=== PATIENT | female | born 1935 | race Caucasian/White ===

== ENCOUNTER 2016-11-12 12:30 | Inpatient (IN) | payer OTHER, MEDICARE ==
[2016-11-12 12:37] VITALS: BMI 21.9
[2016-11-12] MEDS ORDERED: SODIUM CHLORIDE 1,000 ML IV STA (15:06)
--- NOTE | 2016-11-12 15:06 | PDOC ---
History of Present Illness - General Chief Complaint: Sore Throat Stated Complaint: PCP SENT, THROAT PAIN Time Seen by Provider: 11/12/16 13:48 History Source: Patient Exam Limitations: No Limitations - History of Present Illness Initial Comments: 11/12/16 15:01 81-year-old female complaining of difficulty swallowing since Wednesday after eating dinner. Patient states unable to take her medication and has been having to spit into a cup secondary to secretions. Patient states had an endoscopy done by Dr. Kennedy in February but was sent here by her PCP for admission and also to be seen by Dr. Stone for food impaction. Patient denies neck pain, dizziness, chest pain, shortness of breath, fever or chills. Patient denies sore throat, change in voice, or dizziness. Timing/Duration: other Severity: moderate Associated Symptoms: reports: other Past History - Past Medical History Allergies/Adverse Reactions: Allergies Allergy/AdvReac Type Severity Reaction Status Date / Time aspirin Allergy Mild Hives Verified 11/12/16 12:36 Penicillins Allergy Verified 11/12/16 12:36 Home Medications: Ambulatory Orders Atorvastatin Ca [Lipitor] 10 mg PO HS 11/26/14 Ascorbate Calcium [Vitamin C] 500 mg PO DAILY 01/06/16 Cilostazol 100 mg PO BID 01/06/16 Ferrous Gluconate [Iron] 256 mg PO DAILY 01/06/16 Anemia: Yes Asthma: No Cancer: No Cardiac Disorders: Yes (CAROTID ARTERY STENOSIS) CVA: No COPD: No CHF: No Dementia: No Diabetes: No GI Disorders: Yes (CECAL AVM) Disorders: No HTN: No Hypercholesterolemia: No Liver Disease: No Suicide Attempt (Hx): No Seizures: No Thyroid Disease: No - Surgical History Abdominal Surgery: No Appendectomy: No Cardiac Surgery: Yes (CELIAC AXIS STENT, IVC FILTER) Cholecystectomy: No Lung Surgery: No Neurologic Surgery: No Orthopedic Surgery: Yes (ELBOW FRACTURE) - Psycho/Social/Smoking Cessation Hx Suicidal Ideation: No Smoking History: Never smoked Have you smoked in the past 12 months: No If you are a former smoker, when did you quit?: 1998 Information on smoking cessation initiated: No Hx Alcohol Use: No Drug/Substance Use Hx: No Substance Use Type: None Hx Substance Use Treatment: No Patient Lives Alone: No Lives with/in: brother Review of Systems - Review of Systems Able to Perform ROS?: Yes Constitutional: No: Symptoms Reported HEENTM: Yes: Difficulty Swallowing Respiratory: No: Symptoms reported Cardiac (ROS): No: Symptoms Reported ABD/GI: No: Symptoms Reported : No: Symptoms Reported Musculoskeletal: No: Symptoms Reported Integumentary: No: Symptoms Reported Endocrine: No: Symptoms Reported Hematologic/Lymphatic: Yes: See HPI *Physical Exam - Vital Signs Last Vital Signs Temp Pulse Resp BP Pulse Ox 98.3 F 106 H 18 132/82 97 11/12/16 12:33 11/12/16 12:33 11/12/16 12:33 11/12/16 12:33 11/12/16 12:33 - Physical Exam General Appearance: Yes: Nourished, Appropriately Dressed. No: Apparent Distress HEENT: positive: EOMI, SONG, Normal Voice, Pharynx Normal (uvula midline). negative: Tonsillar Erythema, Excessive drooling Neck: positive: Normal Thyroid, Supple. negative: Lymphadenopathy (R), Lymphadenopathy (L) Respiratory/Chest: positive: Lungs Clear, Normal Breath Sounds. negative: Respiratory Distress, Accessory Muscle Use, Stridor Cardiovascular: positive: Regular Rhythm, Tachycardia. negative: Murmur Gastrointestinal/Abdominal: positive: Soft. negative: Tenderness Integumentary: positive: Normal Color, Warm, Moist Neurologic: positive: Motor Strength 5/5 (ambulatory) ED Treatment Course - LABORATORY CBC & Chemistry Diagram: 11/12/16 15:20 11/12/16 15:20 - RADIOLOGY Radiology Studies Ordered: Category Date Time Status CHEST X-RAY PORTABLE* [RAD] Stat Radiology 11/12/16 14:50 Ordered Medical Decision Making - Medical Decision Making 11/12/16 15:07 Pt here for likely food impaction after eating a pork loin on Wednesday. Patient states has been unable to drink fluids take her medications and tolerate solids since Wednesday. Patient to be admitted under Dr. Bianchi and to be consultation by GI Dr. Eduardo Stone call placed to both admission orders and IV fluids ordered. 11/12/16 16:[address] Anh Stone and will consult. 11/12/16 16:53 Dr. Stone here for consultation. Pt comfortable and awaiting imaging. *DC/Admit/Observation/Transfer Diagnosis at time of Disposition: Obstruction of esophagus due to food impaction, Hypoglycemia, Elevated BUN Dysphagia Qualifiers: Dysphagia type: unspecified Qualified Code(s): R13.10 - Dysphagia, unspecified - Discharge Dispostion Admit: Yes - Referrals
[2016-11-12 15:36] LABS: BASOPHIL 0.9 % (0-2.0); EOSINOPHIL 0.6 % (0-4.5); MCH 28.4 pg (25.7-33.7); MCHC 31.2 g/dl (32.0-36.0); MEAN CELL VOLUME 90.8 fl (80-96); MEAN PLT VOLUME 8.4 fl (7.5-11.1); PLATELET COUNT 380 K/MM3 (134-434); RDW 16.6 % (11.6-15.6); WHITE BLOOD COUNT 10.3 K/mm3 (4.0-10.0)
[2016-11-12 15:57] LABS: ALBUMIN 3.8 g/dl (3.4-5.0); ANION GAP 14 (8-16); BILIRUBIN,TOTAL 0.6 mg/dL (0.2-1.0); CALCIUM 8.9 mg/dL (8.5-10.1); CO2 18 mmol/L (21-32); CREATININE 0.8 mg/dL (0.55-1.02); GLUCOSE,RANDOM 57 mg/dL (74-106); MAGNESIUM 2.6 mg/dL (1.8-2.4); SGPT/ALT 17 U/L (12-78); TOT PROT 8.2 g/dl (6.4-8.2)
[2016-11-12 15:58] LABS: ALK PHOS 76 U/L (45-117)
[2016-11-12 16:00] LABS: SGOT/AST 41 U/L (15-37)
[2016-11-12] MEDS ORDERED: DEXTROSE 5%-0.45% SALINE 1,000 ML IV SCH (16:15)
--- NOTE | 2016-11-12 16:40 | PN ---
Progress Note (short form) - Note Progress Note: Consult dictated Came to see Patient as Dr. Kennedy advised me she may be coming to the ER today with suspected food impaction. Call placed by the ER scribe to alert me of her arrival and to discuss the case with ER BOOKY Elliot was actually to Dr. Jerardo Tovar's office, not to mine. Difficulty swallowing after eating pork loin Wednesday Last tried to eat yogurt this past wednesday but it caused pain has been spitting up saliva Says that this has happened on 2-3 other occasions the last being 2-3 years ago , requiring upper endoscopy to "get the food out" Imp: Suspected proximal esophageal food impaction Plan: CT scan neck and chest IV hydration Upper endoscopy pending the above. Discussed potential risks of the procedure like but not limited to bleeding, perforation requiring surgery to repair, infection,sedation medication effects all of which could be potentially life threatening. She has agreed to the procedure
--- NOTE | 2016-11-12 17:26 | PN ---
Progress Note (short form) - Note Progress Note: patient explained to me that after positioning her chin to her chest for CT scan , she felt food go down and states feeling much better now. Advised her nurse Mimi to give Ms. Tamez a trial of clear liquids, npo after midnight with elective EGD in AM. Given recurrence of food impactions ? dysmitility, ? EE.
[2016-11-12] MEDS ORDERED: DEXTROSE 5%-NORMAL SALINE 1,000 ML IV SCH (18:15)
--- NOTE | 2016-11-12 18:23 | CONS ---
DATE OF CONSULTATION: DATE OF DICTATION: 11/12/2016 GASTROINTESTINAL CONSULTATION REQUESTING PHYSICIAN: Patrizia Bianchi M.D. HISTORY OF PRESENT ILLNESS: Patient is an 81-year-old female admitted through [facility] emergency room for evaluation of difficulty swallowing. She states she was in her usual state of health until Wednesday when after eating pork loin, she began experiencing pain in her throat and difficulty swallowing. She tried drinking water; this caused pain. She had to spit the water out, and she states that the last time she tried eating something was this patient Wednesday, which was yogurt, which led to pain in her throat. She has been spitting up her saliva as well. She describes similar about 2 or 3 of these episodes in the past, and the last occurring about 2 or 3 years ago, and alludes to having had an upper endoscopy performed to "remove food". She is known to my colleague, Dr. Aaron Kennedy, who was seeing her in spring for evaluation of anemia. This culminated in both upper endoscopy and colonoscopy. She had upper endoscopy on January 07, 2016, revealing 5-cm hiatal hernia, a tiny 1-2 mm benign-appearing ulcer within the hernia, and he did note that the junction between the esophageal and gastric mucosa appeared sharp. He noted a friable duodenal bulb. 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 She states she has also been unable to properly take her standing medications. PAST MEDICAL HISTORY: Includes anemia, bilateral pulmonary emboli, celiac axis stent placement. PAST SURGICAL HISTORY: Includes elbow fracture repaired in 1998, IVC filter placement, and celiac axis stent to the superior mesenteric artery with lower GI bleeding 9 days afterwards, when she was on Plavix at the time. Plavix was discontinued. SOCIAL HISTORY: She was born in the [place], , former smoker. She drinks a glass of wine daily. No history of intravenous drug abuse or illicit drugs. FAMILY HISTORY: Father had a history of CHF, mother had a CVA, sibling had a CVA and child in good health. MEDICATIONS PRIOR TO ADMISSION: Include Lipitor, Pletal, and Protonix. ALLERGIES: PENICILLIN and ASPIRIN, which caused hives. REVIEW OF SYSTEMS: She denies any chest pain or shortness of breath. She denied any fevers or chills, any nausea or vomiting. She did complain of difficulty swallowing. She denied any rectal bleeding and hematemesis. She does describe pain upon swallowing as well. PHYSICAL EXAMINATION: General: The patient is found lying comfortably in her emergency room stretcher. She did have a kidney basin with some sputum from spitting up her saliva. Vital signs: She is afebrile with a temperature of 97.9, pulse 100, blood pressure 131/64, and she was saturating at 94% on room air. HEENT: Sclerae are anicteric. Neck: Supple. Cardiovascular: Tachycardic rate with a regular rhythm. No murmurs are appreciated. Lungs: Clear to auscultation bilaterally. Abdomen: Nondistended. Normoactive bowel sounds. No hepatosplenomegaly was appreciated. No mass was palpated. No hernia detected. No tenderness was elicited. Extremities: No lower extremity edema. LABORATORY EVALUATION: White blood count 7.3, hemoglobin 13.4, hematocrit 42.9, platelets 380. INR 1.00, sodium 143, potassium 4.7, chloride 111, bicarbonate 18, BUN 25, creatinine 0.8, glucose 57, AST 41, ALT 17, alkaline phosphatase 76. IMPRESSION: An 81-year-old female with suspected proximal esophageal food impaction. PLAN: CT scan of the neck and chest. IV hydration. I did discuss upper endoscopy with Ms. Tamez pending the above. We discussed potential risks of the procedure like, but not limited to, bleeding, perforation requiring surgery to repair, infection, sedation/medication effects, all of which can be potentially life-threatening. She has agreed to the procedure. Other recommendations will be made pending the above. I thank you for this consultative opportunity. JALYN ANTHONY DO [id number]
--- NOTE | 2016-11-12 18:48 | HP ---
Admitting History and Physical - Primary Care Physician PCP: Patrizia Bianchi - Admission Chief Complaint: unable to swallow History of Present Illness: 81-year-old female complaining of difficulty swallowing since Wednesday after eating dinner. Patient states unable to take her medication and has been having to spit into a cup secondary to secretions. Patient states had an endoscopy done by Dr. Kennedy and February but was sent here by her PCP for admission and to be seen by Dr. Tovar. Patient denies neck pain, dizziness, chest pain, shortness of breath, fever or chills. Patient denies sore throat, change in voice, or dizziness. History Source: Patient Limitations to Obtaining History: No Limitations - Smoking History Smoking history: Never smoked Have you smoked in the past 12 months: No If you are a former smoker, when did you quit?: 1998 - Alcohol/Substance Use Hx Alcohol Use: No History of Substance Use: reports: None - Social History Usual Living Arrangement: Yes: Alone ADL: Independent History of Recent Travel: No Home Medications - Allergies Allergies/Adverse Reactions: Allergies Allergy/AdvReac Type Severity Reaction Status Date / Time aspirin Allergy Mild Hives Verified 11/12/16 12:36 Penicillins Allergy Verified 11/12/16 12:36 - Home Medications Home Medications: Ambulatory Orders Atorvastatin Ca [Lipitor] 10 mg PO HS 11/26/14 Ascorbate Calcium [Vitamin C] 500 mg PO DAILY 01/06/16 Cilostazol 100 mg PO BID 01/06/16 Ferrous Gluconate [Iron] 256 mg PO DAILY 01/06/16 Family Disease History - Family Disease History Family History: Unremarkable Review of Systems - Review of Systems Constitutional: denies: Chills, Fever Eyes: denies: Blurred Vision, Double Vision HENT: reports: Difficult Swallowing. denies: Mouth Swelling Neck: denies: Stiffness, Tenderness Cardiovascular: denies: Chest Pain, Shortness of Breath Respiratory: denies: Cough, SOB Gastrointestinal: reports: Dysphagia. denies: Abdominal Pain, Bloating, Constipation, Diarrhea, Vomiting Genitourinary: denies: Dysuria, Flank Pain Musculoskeletal: denies: Back Pain, Joint Pain Neurological: denies: Change in LOC, Change in Speech, Confusion, Dizziness Endocrine: denies: Excessive Sweating, Unexplained Weight Gain, Unexplained Weight Loss Hematology/Lymphatic: denies: Easily Bruised, Excessive Bleeding Psychiatric: denies: Anxiety, Depression Physical Examination Vital Signs: Vital Signs Temperature 97.9 F 11/12/16 16:45 Pulse Rate 95 H 11/12/16 16:45 Respiratory Rate 16 11/12/16 16:45 Blood Pressure 131/64 11/12/16 16:45 O2 Sat by Pulse Oximetry (%) 95 11/12/16 16:45 Constitutional: Yes: No Distress, Calm Eyes: Yes: Conjunctiva Clear HENT: Yes: Atraumatic Neck: Yes: Supple Cardiovascular: Yes: Regular Rate and Rhythm Respiratory: Yes: CTA Bilaterally Gastrointestinal: Yes: Soft. No: Distention, Tenderness Renal/: No: CVA Tenderness - Left, CVA Tenderness - Right Musculoskeletal: No: Joint Stiffness, Joint Swelling Extremities: No: Calf Tenderness, Cold, Cool, Cyanosis Edema: No Peripheral Pulses WNL: Yes Integumentary: No: Pressure Ulcer, Rash, Venous Stasis Changes Neurological: Yes: WNL, Alert, Oriented ...Motor Strength: WNL Psychiatric: Yes: WNL, Alert, Oriented. No: Agitated, Suicidal Ideation Imaging - Results Chest X-ray: Report Reviewed Cat Scan: Report Reviewed Assessment/Plan 81-year-old female complaining of difficulty swallowing since Wednesday after eating dinner. Patient states unable to take her medication and has been having to spit into a cup secondary to secretions. GI eval r/o food impaction IVF for dehydration and hypoGlycemia d/w pt and staff; d/w ER dr and pt's PCP dr Koko Davalos
[2016-11-12] MEDS ORDERED: HEPARIN NA (PORCINE) 5,000 UNITS/ML 1ML VIAL SQ SCH (22:00)
[2016-11-12] MEDS ORDERED: ATORVASTATIN CA 10 MG TABLET (FP) PO SCH (22:00)
[2016-11-13 06:47] LABS: BASOPHIL 1.2 % (0-2.0); EOSINOPHIL 4.3 % (0-4.5); MCH 28.5 pg (25.7-33.7); MEAN PLT VOLUME 8.4 fl (7.5-11.1); NEUTROPHILS 60.7 % (42.8-82.8); PLATELET COUNT 329 K/MM3 (134-434); RDW 16.2 % (11.6-15.6); WHITE BLOOD COUNT 6.2 K/mm3 (4.0-10.0)
[2016-11-13 07:04] LABS: CALCIUM 7.9 mg/dL (8.5-10.1); CREATININE 0.7 mg/dL (0.55-1.02)
[2016-11-13] MEDS: CILOSTAZOL 100 MG TABLET PO SCH ×2 (07:34→10:11)
[2016-11-13] MEDS ORDERED: PROPOFOL 20 ML ONE ×2 (10:06)
--- NOTE | 2016-11-13 11:23 | EKG ---
Test Reason : Blood Pressure : / mmHG Vent. Rate : 094 BPM Atrial Rate : 094 BPM P-R Int : 150 ms QRS Dur : 090 ms QT Int : 386 ms P-R-T Axes : 061 -16 082 degrees QTc Int : 482 ms NORMAL SINUS RHYTHM POSSIBLE LEFT ATRIAL ENLARGEMENT LEFT VENTRICULAR HYPERTROPHY WITH REPOLARIZATION ABNORMALITY ABNORMAL ECG WHEN COMPARED WITH ECG OF 26-NOV-2014 12:51, NONSPECIFIC T WAVE ABNORMALITY NOW EVIDENT IN LATERAL LEADS Confirmed by JOSY DELGADO MD ([id number]) on 11/13/2016 11:22:48 AM Referred By: Confirmed By:JOSY DELGADO MD
--- NOTE | 2016-11-13 12:13 | DS ---
Physical Examination Vital Signs: Vital Signs Temperature 97.7 F 11/13/16 11:22 Pulse Rate 90 11/13/16 11:57 Respiratory Rate 20 11/13/16 11:57 Blood Pressure 125/63 11/13/16 11:57 O2 Sat by Pulse Oximetry (%) 95 11/13/16 11:57 Findings/Remarks: seen in endo s/p EGD d/w pt and dr Knight the findings; no dysphagia ate OK needs PPI home; ordered from pharmacy; d/w pt needs f/u with PCP in 1-2 weeks and with GI as advised in 2-3 months avoid Nsaids to be picked up from [facility] by family, advised do not drive today also advised see cardio outpt for ashd screening; EKG nonspec T waves changes pt asymptomatic no CP/SOB/DOAN d/w pt all the above, she is axox3 and undertsood all d/w PCP dr Davalos scripts done, d/w staff Constitutional: Yes: No Distress Eyes: Yes: Conjunctiva Clear HENT: Yes: Atraumatic Neck: Yes: Supple Cardiovascular: Yes: Regular Rate and Rhythm Respiratory: Yes: CTA Bilaterally Gastrointestinal: Yes: Soft. No: Distention, Tenderness Renal/: No: CVA Tenderness - Left, CVA Tenderness - Right Musculoskeletal: No: Joint Stiffness, Joint Swelling Extremities: No: Cold, Cool Edema: No Peripheral Pulses WNL: Yes Integumentary: No: Pressure Ulcer, Venous Stasis Changes Neurological: Yes: WNL, Alert, Oriented ...Motor Strength: WNL Psychiatric: Yes: WNL, Alert, Oriented. No: Agitated Labs: CBC, BMP 11/13/16 06:15 11/13/16 06:15 Discharge Summary Reason For Visit: DYSPAGIA; OBSTRUCTION ESOPHAGUS DUE TO FOOD IMPACT Current Active Problems Dysphagia (Acute) Elevated BUN (Acute) Hypoglycemia (Acute) Obstruction of esophagus due to food impaction (Acute) Procedures: Principal: food impaction Other Procedures: EGD GI dr Knight; Hospital Course: improved; see DC instructions - Instructions Diet, Activity, Other Instructions: CHEW FOOD WELL FLUIDS WITH FOOD PANTOPRAZOLE 40MG DAILY AVOID NSAIDS f/u PCP dr Davalos in 1-2 weeks; GI f/u dr Knight as advised; outpt cardiology eval for ASHD screening d/w pt Referrals: Caren Davalos MD [Primary Care Provider] - Juan Alberto Knight MD [Staff Physician] - Disposition: HOME - Home Medications Comprehensive Discharge Medication List: Ambulatory Orders Atorvastatin Ca [Lipitor] 10 mg PO HS 11/26/14 Ascorbate Calcium [Vitamin C] 500 mg PO DAILY 01/06/16 Cilostazol 100 mg PO BID 01/06/16 Ferrous Gluconate [Iron] 256 mg PO DAILY 01/06/16 Pantoprazole Sodium [Protonix] 40 mg PO DAILY #30 tablet. 11/13/16
[2016-11-13 12:47] VITALS: BP 139/82; PULSE 8
[2016-11-13 13:00] VITALS: TEMP 97.5
--- NOTE | 2016-11-16 11:19 | PATH ---
Surgical Pathology Report Patient Name: RENNY ALMANZA [facility]. Rec. #: [id number] /Age/Gender: 1935 (Age: 81) / F Account: [id number] Location: EMERGENCY ROOM Taken: 11/13/2016 Received: 11/13/2016 Reported: 11/16/2016 Physicians: Juan Alberto Knight M.D. Specimen(s) Received A: BX STOMACH B: BX GASTRIC POLYP C: BX MID ESOPHAGUS Clinical History Food impaction Hiatal hernia, atrophic gastritis, duodenal ulcer, gastric polyp Final Diagnosis A. STOMACH, BIOPSY: GASTRIC MUCOSA WITH NO PATHOLOGIC CHANGES. IMMUNOSTAIN FOR H. PYLORI IS NEGATIVE. B. STOMACH, POLYP, BIOPSY: GASTRIC FUNDIC MUCOSA WITH MILD HYPERPLASTIC CHANGES. NO ADENOMATOUS CHANGE IS IDENTIFIED. IMMUNOSTAIN FOR H. PYLORI IS NEGATIVE. C. MID ESOPHAGUS BIOPSY: SQUAMOUS EPITHELIUM WITH PAPILLOMATOSIS AND CHRONIC INFLAMMATION SUGGESTIVE OF REFLUX ESOPHAGITIS. NO EOSINOPHILIC ESOPHAGITIS IDENTIFIED. Electronically Signed Abdirahman Sotelo M.D. Gross Description A. Received in formalin, labeled "biopsy stomach" are 3 urena, irregular portions of soft tissue ranging from 0.5-0.8 cm. in greatest dimension. The specimens are submitted in toto in one cassette. B. Received in formalin, labeled "biopsy gastric polyp" are 2 urena, irregular portions of soft tissue measuring 0.2 and 0.4 cm. in greatest dimension. The specimens are submitted in toto in one cassette. C. Received in formalin, labeled "biopsy midesophagus" is a urena, irregular portion of soft tissue measuring 0.3 cm. in greatest dimension. The specimen is submitted in toto in one cassette. 11/13/201611/13/2016
== END 2016-11-13 14:00 | disposition home or self-care (01) | DRG 395 ==
LOC: JERFT 12:30 → JER 12:30 → JERBED 16:20
PROVIDERS: ADMIT Internal Medicine; ATTEND Internal Medicine
PROC: 0DB58ZX Excision of Esophagus, Via Natural or Artificial Opening Endoscopic, Diagnostic (ICD-10-PCS; 2016-11-13)
PROC: 0DBG8ZZ Excision of Left Large Intestine, Via Natural or Artificial Opening Endoscopic (ICD-10-PCS; 2016-11-13)
PROC: 0DB68ZX Excision of Stomach, Via Natural or Artificial Opening Endoscopic, Diagnostic (ICD-10-PCS; principal; 2016-11-13 10:45)
DX: T18.128A Food in esophagus causing other injury, initial encounter (principal); D64.9 Anemia, unspecified; I65.29 Occlusion and stenosis of unspecified carotid artery; K44.9 Diaphragmatic hernia without obstruction or gangrene; K63.5 Polyp of colon; K26.9 Duodenal ulcer, unspecified as acute or chronic, without hemorrhage or perforation; K29.40 Chronic atrophic gastritis without bleeding; X58.XXXA Exposure to other specified factors, initial encounter; Y93.89 Activity, other specified; Y92.89 Other specified places as the place of occurrence of the external cause; Y99.8 Other external cause status
CPT/HCPCS: 36415; 70490-TC; 71250-TC; 80048; 80053; 83735; 85025; 85610; 86850; 86900; 86901; 88305-TC; 93005; 93010; 99282-25

== ENCOUNTER 2017-07-23 10:02 | Inpatient (IN) | payer OTHER, MEDICARE ==
--- NOTE | 2017-07-23 10:08 | PDOC ---
History of Present Illness - General Stated Complaint: VOMITING Time Seen by Provider: 07/23/17 10:07 Past History - Past Medical History Allergies/Adverse Reactions: Allergies Allergy/AdvReac Type Severity Reaction Status Date / Time aspirin Allergy Mild Hives Verified 07/23/17 10:06 Penicillins Allergy Verified 07/23/17 10:06 Home Medications: Ambulatory Orders Atorvastatin Ca [Lipitor] 10 mg PO HS 11/26/14 Ascorbate Calcium [Vitamin C] 500 mg PO DAILY 01/06/16 Cilostazol 100 mg PO BID 01/06/16 Ferrous Gluconate [Iron] 256 mg PO DAILY 01/06/16 Pantoprazole Sodium [Protonix] 40 mg PO DAILY #30 tablet. 11/13/16 Anemia: Yes Asthma: No Cancer: No Cardiac Disorders: Yes (CAROTID ARTERY STENOSIS) CVA: No COPD: No CHF: No Dementia: No Diabetes: No GI Disorders: Yes (CECAL AVM) Disorders: No HTN: No Hypercholesterolemia: No Liver Disease: No Suicide Attempt (Hx): No Seizures: No Thyroid Disease: No - Surgical History Abdominal Surgery: No Appendectomy: No Cardiac Surgery: Yes (CELIAC AXIS STENT, IVC FILTER) Cholecystectomy: No Lung Surgery: No Neurologic Surgery: No Orthopedic Surgery: Yes (ELBOW FRACTURE) - Psycho/Social/Smoking Cessation Hx Suicidal Ideation: No Smoking History: Never smoked Have you smoked in the past 12 months: No If you are a former smoker, when did you quit?: 1998 Hx Alcohol Use: No Drug/Substance Use Hx: No Substance Use Type: None Hx Substance Use Treatment: No
[2017-07-23] MEDS ORDERED: SODIUM CHLORIDE 1,000 ML IV STA (10:22)
[2017-07-23 10:41] LABS: BASOPHIL 2.1 % (0-2.0); EOSINOPHIL 1.3 % (0-4.5); MCH 21.8 pg (25.7-33.7); MCHC 30.5 g/dl (32.0-36.0); MEAN CELL VOLUME 71.3 fl (80-96); MEAN PLT VOLUME 7.6 fl (7.5-11.1); NEUTROPHILS 62.8 % (42.8-82.8); PLATELET COUNT 464 K/MM3 (134-434); RDW 19.9 % (11.6-15.6); WHITE BLOOD COUNT 6.2 K/mm3 (4.0-10.0)
[2017-07-23 11:00] LABS: INR 1.12 (0.82-1.09); PROTHROMBIN TIME (PATIENT) 12.4 SEC (9.98-11.88)
[2017-07-23 11:02] LABS: ALBUMIN 3.5 g/dl (3.4-5.0); ANION GAP 12 (8-16); BILIRUBIN,TOTAL 0.4 mg/dL (0.2-1.0); CALCIUM 9.3 mg/dL (8.5-10.1); CO2 23 mmol/L (21-32); CREATININE 1.1 mg/dL (0.55-1.02); GLUCOSE,RANDOM 135 mg/dL (74-106); SGOT/AST 25 U/L (15-37); SGPT/ALT 14 U/L (12-78); TOT PROT 7.6 g/dl (6.4-8.2)
[2017-07-23 11:04] LABS: ALK PHOS 61 U/L (45-117); CPK 63 IU/L (26-192); TROPONIN I 0.02 ng/ml (0.00-0.05)
--- NOTE | 2017-07-23 11:47 | PDOC ---
History of Present Illness - General Chief Complaint: Revisit, Lab Variance Stated Complaint: LOW H&H,NAUSEA Time Seen by Provider: 07/23/17 10:07 History Source: Patient Exam Limitations: No Limitations - History of Present Illness Initial Comments: 07/23/17 10:14 81-year-old female presents to the ED for evaluation of drop in hematocrit associated with dizziness and nausea for the past few days. Patient states has history of PUD that required a cecal stent placed 2 years ago and has been under the care of Dr. Blackmon. Patient also states history of CAD and anemia. Patient denies bloody stool, dark colored stool, abdominal distention, vomiting up blood, or palpitations. Patient denies recent change in medications and was told by her PCP after receiving blood work that was drawn yesterday that her hemoglobin and hematocrit dropped approximately 3-4 points. Timing/Duration: getting worse Severity: moderate Associated Symptoms: reports: loss of appetite, nausea/vomiting, weakness. denies: shortness of breath Past History - Past Medical History Allergies/Adverse Reactions: Allergies Allergy/AdvReac Type Severity Reaction Status Date / Time aspirin Allergy Mild Hives Verified 07/23/17 10:06 Penicillins Allergy Verified 07/23/17 10:06 Home Medications: Ambulatory Orders Atorvastatin Ca [Lipitor] 10 mg PO HS 11/26/14 Ascorbate Calcium [Vitamin C] 500 mg PO DAILY 01/06/16 Cilostazol 100 mg PO BID 01/06/16 Ferrous Gluconate [Iron] 256 mg PO DAILY 01/06/16 Pantoprazole Sodium [Protonix] 40 mg PO DAILY #30 tablet. 11/13/16 Anemia: Yes Asthma: No Cancer: No Cardiac Disorders: Yes (CAROTID ARTERY STENOSIS) CVA: No COPD: No CHF: No Dementia: No Diabetes: No GI Disorders: Yes (CECAL AVM) Disorders: No HTN: No Hypercholesterolemia: No Liver Disease: No Suicide Attempt (Hx): No Seizures: No Thyroid Disease: No - Surgical History Abdominal Surgery: No Appendectomy: No Cardiac Surgery: Yes (CELIAC AXIS STENT, IVC FILTER) Cholecystectomy: No Lung Surgery: No Neurologic Surgery: No Orthopedic Surgery: Yes (ELBOW FRACTURE) - Psycho/Social/Smoking Cessation Hx Suicidal Ideation: No Smoking History: Former smoker Have you smoked in the past 12 months: No If you are a former smoker, when did you quit?: 1998 Information on smoking cessation initiated: No Hx Alcohol Use: No Drug/Substance Use Hx: No Substance Use Type: None Hx Substance Use Treatment: No Patient Lives Alone: No Review of Systems - Review of Systems Able to Perform ROS?: Yes Constitutional: Yes: Loss of Appetite, Weakness HEENTM: No: Symptoms Reported Respiratory: No: Symptoms reported Cardiac (ROS): Yes: Lightheadedness ABD/GI: Yes: Nausea, Poor Appetite. No: Constipated, Diarrhea, Poor Fluid Intake, Rectal Bleeding, Vomiting, Abdominal cramping : No: Symptoms Reported Musculoskeletal: No: Symptoms Reported Integumentary: No: Symptoms Reported Neurological: No: Symptoms reported Hematologic/Lymphatic: Yes: Anemia *Physical Exam - Vital Signs Last Vital Signs Temp Pulse Resp BP Pulse Ox 97.6 F 110 H 15 86/51 96 07/23/17 10:06 07/23/17 10:06 07/23/17 10:06 07/23/17 10:06 07/23/17 10:06 - Physical Exam General Appearance: Yes: Nourished, Appropriately Dressed. No: Apparent Distress HEENT: negative: Pale Conjunctivae Neck: positive: Supple Respiratory/Chest: positive: Lungs Clear, Normal Breath Sounds. negative: Respiratory Distress, Accessory Muscle Use Cardiovascular: positive: Regular Rhythm, Tachycardia. negative: Murmur Gastrointestinal/Abdominal: positive: Soft. negative: Tenderness Rectal Exam: positive: heme negative stool. negative: hemorrhoids Musculoskeletal: negative: Normal Inspection Extremity: negative: Normal Capillary Refill, Pedal Edema Integumentary: positive: Normal Color, Warm, Moist Neurologic: positive: Normal Mood/Affect, Motor Strength 5/5 (ambulatory) Heart Score/ECG Review - ECG Impressions Tachycardia: Sinus (sinus tachycardia at 101. No ST depression or elevation) ED Treatment Course - LABORATORY CBC & Chemistry Diagram: 07/23/17 10:35 07/23/17 10:35 - ADDITIONAL ORDERS Additional order review: 07/23/17 10:35 RBC 4.24 MCV 71.3 L MCHC 30.5 L RDW 19.9 H D MPV 7.6 Neutrophils % 62.8 Lymphocytes % 25.2 Monocytes % 8.6 Eosinophils % 1.3 Basophils % 2.1 H - RADIOLOGY Radiology Studies Ordered: Category Date Time Status CHEST X-RAY PORTABLE* [RAD] Stat Radiology 07/23/17 10:22 Taken Medical Decision Making - Medical Decision Making 07/23/17 11:02 Patient sent in by her PCP for drop in H&H accompanied with patient with symptoms of weakness, nausea, and poor appetite. Patient with history of PUD requiring a stent [address] Blackmon. Patient has no complaints of hematochezia, hemoptysis, or hematemesis. Patient was ordered for labs including type and screen, coags and IV fluids. Stool sent for guaiac testing. Will contact Dr. Blackmon once labs are resulted. 07/23/17 12:53 Laboratory Tests 07/23/17 07/23/17 07/23/17 10:35 10:35 10:35 WBC 6.2 Hgb 9.2 L D Hct 30.2 L D MCV 71.3 L Plt Count 464 H D Basophils % 2.1 H PT with INR 12.40 H INR 1.12 Sodium Potassium Chloride Carbon Dioxide Anion Gap BUN Creatinine Random Glucose Total Bilirubin AST ALT Troponin I Urine Protein Urine Ketones Urine Urobilinogen Stool Occult Blood Blood Type O POSITIVE 07/23/17 07/23/17 07/23/17 10:35 10:35 12:05 WBC Hgb Hct MCV Plt Count Basophils % PT with INR INR Sodium 137 Potassium 3.7 Chloride 102 Carbon Dioxide 23 Anion Gap 12 BUN 26 H D Creatinine 1.1 H D Random Glucose 135 H D Total Bilirubin 0.4 D AST 25 D ALT 14 Troponin I 0.02 Urine Protein 1+ H Urine Ketones Trace H Urine Urobilinogen Negative Stool Occult Blood Negative Blood Type Case discussed with Dr. Blackmon who states stent being C should be checked ordering a CT of the abdomen. Awaiting callback from Dr. Bianchi for admission. *DC/Admit/Observation/Transfer Diagnosis at time of Disposition: Symptomatic anemia, Weakness, Nausea, Poor appetite - Discharge Dispostion Admit: Yes - Referrals
[2017-07-23 12:27] LABS: URINE APPEARANCE SLCLOUDY; URINE BILIRUBIN NEGATIVE (NEGATIVE); URINE BLOOD NEGATIVE (NEGATIVE); URINE COLOR LTYELLOW; URINE GLUCOSE (UA) NEGATIVE (NEGATIVE); URINE KETONE TRACE (NEGATIVE); URINE NITRITE NEGATIVE (NEGATIVE); URINE UROBILINOGEN NEGATIVE mg/dL (0.2-1.0)
[2017-07-23 12:31] LABS: URINE LEUK ESTERASE 2+ (NEGATIVE); URINE PROTEIN 1+ (NEGATIVE)
[2017-07-23] MEDS ORDERED: PANTOPRAZOLE SODIUM 40 MG in SODIUM CHLORIDE 100 ML IVPB ONE (12:40)
[2017-07-23] MEDS ORDERED: PANTOPRAZOLE SODIUM 100 ML IVPB ONE (12:43)
[2017-07-23 13:00] LABS: URINE BACTERIA RARE /hpf (NONE SEEN); URINE HYALINE CAST 4 /lpf; URINE MUCUS RARE; URINE RBC 1 /hpf (0-3); URINE WBC 5 /hpf (3-5)
--- NOTE | 2017-07-23 16:16 | CON.GI ---
Consult Consult Specialty:: GI Reason for Consultation:: Anemia - History of Present Illness Chief Complaint: Weakness, LUIS History of Present Illness: History of Present Illness 81 year old female presented to the ED for a 5 day hx of nausea, dizziness, malaise, and loss of appetite. She states that these symptoms persisted throughout the week and that she has been having dry heaves without overt vomiting. She states that she had 2 episodes of non-bloody diarrhea on Wednesday and none since. Since Wednesday, she has not had a good appetite, eating only toast and other small, light foods. She saw her vascular doctor for claudication in her R leg yesterday, where they tania labs, found her H&H to be lower than normal, and told her to go to the hospital. Patient states that she stopped her iron pills after her colonoscopy in 2015. Gastroenterology is consulted for evaluation of possible GI bleed. PAST ENDOSCOPIES: EGD 11/13/16: esophageal mucosa normal, large sliding hiatal hernia, medium sized abnormal mucosa in gastric body and antrum; mucosa was atrophic. multiple sessile polyps were found in gastric body; polypectomy performed (found to be hyperplastic); small non-bleeding duodenal bulb ulcer; no abnormalities in duodenal mucosa EGD 01/07/16: in addition to the above, small 1-2mm benign ulcer within the hernia was noted Colonoscopy 02/11/2016: moderate diverticulosis, multiple angiodysplastic lesions in the R colon and cecum which were cauterized Past Medical History: HLD, pulmonary embolism, diverticulosis, R colonic angiodysplasias, hiatal hernia, PUD, PVD, rectal bleed Past Surgical History: orthopedic surgery in L elbow, IVC filter, SMA stent in 2014 Medications: atorvastatin, pantoprazole, cilostozol Allergies: aspirin, penicillins Social History: nondrinker, former smoker (quit in 1998), 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 Brother (brain aneurysm). 2 children healthy. 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 (01/21)), Hiatal Hernia (with Carlos ulcer+), Peptic Ulcer Disease, Other (Previous hx of food impactions that had spontaneously resolved) Heme/Onc: Yes: Anemia - Past Surgical History Past Surgical History: Yes: Colonoscopy, Upper Endoscopy Additional Surgical History: IVC filter, SMA stent, L elbow surgery - Alcohol/Substance Use Hx Alcohol Use: No History of Substance Use: reports: None - Smoking History Smoking history: Former smoker Have you smoked in the past 12 months: No If you are a former smoker, when did you quit?: 1998 - Social History Usual Living Arrangement: Alone ADL: Independent 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 Place of : [facility] History of Recent Travel: No Home Medications - Allergies Allergies/Adverse Reactions: Allergies Allergy/AdvReac Type Severity Reaction Status Date / Time aspirin Allergy Mild Hives Verified 07/23/17 10:06 Penicillins Allergy Verified 07/23/17 10:06 - Home Medications Home Medications: Ambulatory Orders Atorvastatin Ca [Lipitor] 10 mg PO HS 11/26/14 Ascorbate Calcium [Vitamin C] 500 mg PO DAILY 01/06/16 Cilostazol 100 mg PO BID 01/06/16 Ferrous Gluconate [Iron] 256 mg PO DAILY 01/06/16 Pantoprazole Sodium [Protonix] 40 mg PO DAILY #30 tablet. 11/13/16 Family Disease History - Family Disease History Family Disease History: Heart Disease: Father (passed in his 50s), Other: Mother (Stroke), Brother (brain aneurysm) Review of Systems - Review of Systems Constitutional: reports: Loss of Appetite, Malaise, Weakness Eyes: reports: No Symptoms HENT: reports: No Symptoms Neck: reports: No Symptoms Cardiovascular: reports: No Symptoms Respiratory: reports: No Symptoms Gastrointestinal: reports: Diarrhea, Nausea Musculoskeletal: reports: Extremity Pain (claudication), Muscle Cramps (Lower extremity) Integumentary: reports: Other (surgical scar on L elbow) Neurological: reports: No Symptoms Endocrine: reports: No Symptoms Hematology/Lymphatic: reports: No Symptoms Psychiatric: reports: No Symptoms Physical Exam-GI Vital Signs: Vital Signs Temperature 97.6 F 07/23/17 10:06 Pulse Rate 89 07/23/17 12:30 Respiratory Rate 16 07/23/17 12:30 Blood Pressure 144/71 07/23/17 12:30 O2 Sat by Pulse Oximetry (%) 100 07/23/17 12:30 CBC,CMP WBC 6.2 K/mm3 (4.0-10.0) 07/23/17 10:35 RBC 4.24 M/mm3 (3.60-5.2) 07/23/17 10:35 Hgb 9.2 GM/dL (10.7-15.3) L D 07/23/17 10:35 Hct 30.2 % (32.4-45.2) L D 07/23/17 10:35 MCV 71.3 fl (80-96) L 07/23/17 10:35 MCH 21.8 pg (25.7-33.7) L 07/23/17 10:35 MCHC 30.5 g/dl (32.0-36.0) L 07/23/17 10:35 RDW 19.9 % (11.6-15.6) H D 07/23/17 10:35 Plt Count 464 K/MM3 (134-434) H D 07/23/17 10:35 MPV 7.6 fl (7.5-11.1) 07/23/17 10:35 Neutrophils % 62.8 % (42.8-82.8) 07/23/17 10:35 Lymphocytes % 25.2 % (8-40) 07/23/17 10:35 Monocytes % 8.6 % (3.8-10.2) 07/23/17 10:35 Eosinophils % 1.3 % (0-4.5) 07/23/17 10:35 Basophils % 2.1 % (0-2.0) H 07/23/17 10:35 Sodium 137 mmol/L (136-145) 07/23/17 10:35 Potassium 3.7 mmol/L (3.5-5.1) 07/23/17 10:35 Chloride 102 mmol/L (98-107) 07/23/17 10:35 Carbon Dioxide 23 mmol/L (21-32) 07/23/17 10:35 Anion Gap 12 (8-16) 07/23/17 10:35 BUN 26 mg/dL (7-18) H D 07/23/17 10:35 Creatinine 1.1 mg/dL (0.55-1.02) H D 07/23/17 10:35 Creat Clearance w eGFR 47.67 (>60) 07/23/17 10:35 Random Glucose 135 mg/dL (74-106) H D 07/23/17 10:35 Calcium 9.3 mg/dL (8.5-10.1) 07/23/17 10:35 Total Bilirubin 0.4 mg/dL (0.2-1.0) D 07/23/17 10:35 AST 25 U/L (15-37) D 07/23/17 10:35 ALT 14 U/L (12-78) 07/23/17 10:35 Alkaline Phosphatase 61 U/L (45-117) 07/23/17 10:35 Creatine Kinase 63 IU/L (26-192) 07/23/17 10:35 Troponin I 0.02 ng/ml (0.00-0.05) 07/23/17 10:35 Total Protein 7.6 g/dl (6.4-8.2) 07/23/17 10:35 Albumin 3.5 g/dl (3.4-5.0) 07/23/17 10:35 Current Medications Atorvastatin Calcium (Lipitor -) 10 mg PO HS ELIER Cilostazol (Pletal -) 100 mg PO BID ELIER Pantoprazole Sodium (Protonix -) 40 mg PO DAILY ELIER Constitutional: Yes: No Distress, Calm Eyes: Yes: Conjunctiva Clear, EOM Intact, Other (anicteric) HENT: Yes: Atraumatic, Normocephalic Neck: Yes: Supple, Trachea Midline, Other (R femoral bruit and L carotid bruit noted on exam) Cardiovascular: Yes: Regular Rate and Rhythm, Bruit, S1, S2 Respiratory: Yes: Regular, CTA Bilaterally Gastrointestinal Inspection: Yes: WNL ...Auscultate: Yes: Normoactive Bowel Sounds ...Palpate: Yes: Soft ...Rectal Exam: Yes: WNL, Guaiac Negative, Hemorrhoids/External, Sphincter Tone Normal Genitourinary: Yes: WNL Musculoskeletal: Yes: WNL Extremities: Yes: WNL Edema: No Peripheral Pulses WNL: Yes Integumentary: Yes: WNL Neurological: Yes: WNL, Alert, Oriented ...Motor Strength: WNL Psychiatric: Yes: Alert, Oriented Labs: INR, PTT INR 1.12 (0.82-1.09) 07/23/17 10:35 Problem List - Problems (1) Symptomatic anemia Code(s): D64.9 - ANEMIA, UNSPECIFIED (2) Poor appetite Code(s): R63.0 - ANOREXIA (3) Nausea Code(s): R11.0 - NAUSEA (4) Angiodysplasia of colon Code(s): K55.20 - ANGIODYSPLASIA OF COLON WITHOUT HEMORRHAGE (5) Peptic ulcer within a sliding hiatal hernia Code(s): K27.9 - PEPTIC ULC, SITE UNSP, UNSP AC OR CHR, W/O HEMOR OR PERF K44.9 - DIAPHRAGMATIC HERNIA WITHOUT OBSTRUCTION OR GANGRENE (6) Diverticulosis Code(s): K57.90 - DVRTCLOS OF INTEST, PART UNSP, W/O PERF OR ABSCESS W/O BLEED Assessment/Plan 81 yo F pmh HLD, PE, diverticulosis, R colonic angiodysplasias, hiatal hernia, PUD, PVD, rectal bleed presenting for 5 day hx of weakness, nausea leading to the discovery of hemoglobin drop from last testing. No obvious etiology for anemia. Although stool guiac negative, cannot exclude indolent, intermittent GI bleeding due to her already known vascular ectasias. Colonic findings suggest she may also have them in the small intestine. Given her history of Carlos ulcer and duodenal erosions, an EGD has been proposed to exclude recurrence. Gastroscopy has been discussed in detail with the patient, including informing her of the potential complications as perforation and hemorrhage among others. She has granted an informed consent. Procedure has been scheduled for 07/26. Will reserve repeating colonoscopy for signs of overt bleeding. -continue pantoprazole -sodium-controlled diet -order iron studies (TIBC, Ferritin) -order LDH and reticulocyte count -monitor Hgb, transfuse if < 7
[2017-07-23 16:19] VITALS: BMI 22.7
[2017-07-23] MEDS ORDERED: FLU VACCINE QUAD 60 MCG/0.5 ML (MDV 17-18) IM ONE (16:19)
[2017-07-23] MEDS ORDERED: PT OWN MED DRAWER 7, Y5N ONE (16:51)
--- NOTE | 2017-07-23 17:14 | PN ---
Teaching Attending Note Name of Resident: Jerardo Conde ATTENDING PHYSICIAN STATEMENT I saw and evaluated the patient. I reviewed the resident's note and discussed the case with the resident. I agree with the resident's findings and plan as documented. SUBJECTIVE: I was contacted by Dr. Caren Davalos today who referred Karin to the ER. Karin has been feeling weak for the past week. Has increasing RLE claudication. Had CBC drawn by her vascular surgeon yesterday and was found to have a significant drop as compared to previous CBC. Denies any overt bleeding. Denies taking NSAIDs, Has h/o bleeding from colonic angiodysplasias. Has h/o Carlos ulcer ( hiatal hernia) and duodenitis OBJECTIVE: Alert Neck: bruits bilaterally Abd: softly distended, BS normoactive, nontender, no masses Rectal: no masses, brown guaiac negative stool ASSESSMENT AND PLAN: Despite lack of blood in stool I have proposed EGD to exclude an intermittently bleeding recurrent ulcer or gastroduodenitis. She has signed an informed consent. Will do EGD on 07/26. Please see the GI consultation done together with Dr Conde.
--- NOTE | 2017-07-23 21:23 | HP ---
Admitting History and Physical - Primary Care Physician PCP: Patrizia Bianchi S - Admission Chief Complaint: dizziness, anemia, h/o PUD and mesenteric ischemia History of Present Illness: 81 year old female presented to the ED for a 5 day hx of nausea, dizziness, malaise, and loss of appetite. She states that these symptoms persisted throughout the week and that she has been having dry heaves without overt vomiting. She states that she had 2 episodes of non-bloody diarrhea on Wednesday and none since. Since Wednesday, she has not had a good appetite, eating only toast and other small, light foods. She saw her vascular doctor for claudication in her R leg yesterday, where they tania labs, found her H&H to be lower than normal, and told her to go to the hospital. Patient states that she stopped her iron pills after her colonoscopy in 2015. Gastroenterology is consulted for evaluation of possible GI bleed. pt's PCP dr Koko Davalos, d/w her PMH vasculopathy (carotids, SMA stent 2014, PVD), also PUD, IVC filter; ex- smoker stopped 20 years ago pt said she took a blood thinner after stent (possibly plavix, ALL to ASA) but then had GI bleed and stopped it; said she never saw a county or city auditor but had a stress test years ago told [place] has legs pains with walking few blocks History Source: Patient, Medical Record Limitations to Obtaining History: No Limitations - Past Medical History Cardiovascular: Yes: Other (Peripheral vascular disease- requiring SMA stent, carotid artery stenosis, scheduled for RLE angiogram) Pulmonary: Yes: Pulmonary Embolus Gastrointestinal: Yes: Diverticulosis, GI Bleed (vascular ectasia bleed leading to cauterization (01/21)), Hiatal Hernia (with Carlos ulcer+), Peptic Ulcer Disease, Other (Previous hx of food impactions that had spontaneously resolved) ...: No Heme/Onc: Yes: Anemia - Past Surgical History Past Surgical History: Yes: Colonoscopy, Upper Endoscopy - Smoking History Smoking history: Former smoker Have you smoked in the past 12 months: No If you are a former smoker, when did you quit?: 1998 - Alcohol/Substance Use Hx Alcohol Use: No History of Substance Use: reports: None - Social History Usual Living Arrangement: Yes: Alone ADL: Independent 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 11/13/16 Family Disease History - Family Disease History Family Disease History: Heart Disease: Father (passed in his 50s), Other: Mother (Stroke), Brother (brain aneurysm) Review of Systems - Review of Systems Constitutional: reports: Loss of Appetite. denies: Chills, Fever, Lethargy Eyes: denies: Blurred Vision, Double Vision HENT: denies: Epistaxis Neck: denies: Stiffness, Tenderness Cardiovascular: denies: Chest Pain, Shortness of Breath Respiratory: denies: Cough, SOB, SOB on Exertion Genitourinary: denies: Dysuria, Flank Pain Musculoskeletal: reports: Muscle Cramps (legs with walking). denies: Back Pain , Muscle Pain Integumentary: denies: Bruising, Erythema Neurological: reports: Dizziness. denies: Change in LOC, Confusion, Headache, Seizure, Syncope, Unsteady Gait, Weakness Hematology/Lymphatic: denies: Easily Bruised, Excessive Bleeding Psychiatric: denies: Altered Sleep Pattern, Anxiety, Depression, Suicidal Physical Examination Vital Signs: Vital Signs Temperature 98.1 F 07/23/17 19:26 Pulse Rate 97 H 07/23/17 19:26 Respiratory Rate 20 07/23/17 19:26 Blood Pressure 151/79 07/23/17 19:26 O2 Sat by Pulse Oximetry (%) 97 07/23/17 15:00 Constitutional: Yes: No Distress, Calm Eyes: Yes: Conjunctiva Clear HENT: Yes: Atraumatic Neck: Yes: Supple Cardiovascular: Yes: Regular Rate and Rhythm Respiratory: Yes: CTA Bilaterally Gastrointestinal: Yes: Soft. No: Distention, Tenderness Renal/: No: CVA Tenderness - Left, CVA Tenderness - Right Musculoskeletal: No: Joint Stiffness, Joint Swelling Extremities: No: Cold, Cool, Cyanosis Edema: No Integumentary: No: Rash, Venous Stasis Changes Neurological: Yes: WNL, Alert, Oriented ...Motor Strength: WNL Psychiatric: Yes: WNL, Alert, Oriented. No: Agitated, Suicidal Ideation Imaging - Results Chest X-ray: Report Reviewed Other: Report Reviewed Assessment/Plan 81 year old female presented to the ED for a 5 day hx of nausea, dizziness, malaise, and loss of appetite. Found to be anemic; h/o PUD but guaiac negative in ER h/o vascuopathy extob, IVF filter Gastroenterology is consulted for evaluation of possible GI bleed. will also ask cardiology and vascular sx to eval pt sq heparin for DVT/PE PFX if no objections from GI TEDs SCDs also ordered f/u labs; d/w pt and staff; d/w PCP
[2017-07-23] MEDS: PANTOPRAZOLE SODIUM 40 MG in SODIUM CHLORIDE 100 ML IVPB SCH (21:27)
[2017-07-23] MEDS: CILOSTAZOL 100 MG TABLET PO SCH (21:28)
[2017-07-23] MEDS: ATORVASTATIN CA 10 MG TABLET (FP) PO SCH (21:28)
--- NOTE | 2017-07-24 06:42 | PN ---
Progress Note, Physician Chief Complaint: in bed nad afebrile VSS no new c.o - Current Medication List Current Medications: Active Medications Atorvastatin Calcium (Lipitor -) 10 mg PO HS [facility] Last Admin: 07/23/17 21:28 Dose: 10 mg Cilostazol (Pletal -) 100 mg PO BID [facility] Last Admin: 07/23/17 21:28 Dose: 100 mg Pantoprazole Sodium 40 mg/ (Sodium Chloride) 100 mls @ 200 mls/hr IVPB BID [facility] Last Admin: 07/23/17 21:27 Dose: 200 mls/hr - Objective Vital Signs: Vital Signs Temperature 97.7 F 07/24/17 06:01 Pulse Rate 86 07/24/17 06:01 Respiratory Rate 20 07/24/17 06:01 Blood Pressure 135/70 07/24/17 06:01 O2 Sat by Pulse Oximetry (%) 97 07/23/17 21:00 Constitutional: Yes: No Distress, Calm Eyes: Yes: Conjunctiva Clear HENT: Yes: Atraumatic Neck: Yes: Supple Cardiovascular: Yes: Regular Rate and Rhythm Respiratory: Yes: CTA Bilaterally Gastrointestinal: Yes: Soft. No: Distention, Tenderness Genitourinary: No: CVA Tenderness - Left, CVA Tenderness - Right Musculoskeletal: No: Joint Stiffness, Joint Swelling Extremities: No: Cold, Cool, Cyanosis Edema: No Integumentary: No: Rash, Venous Stasis Changes Neurological: Yes: WNL, Alert, Oriented ...Motor Strength: WNL Psychiatric: Yes: WNL, Alert, Oriented. No: Agitated, Suicidal Ideation Labs: INR, PTT INR 1.12 (0.82-1.09) 07/23/17 10:35 - ....Imaging Other: Report Reviewed Assessment/Plan 81 year old female presented to the ED for a 5 day hx of nausea, dizziness, malaise, and loss of appetite. Found to be anemic; h/o PUD but guaiac negative in ER h/o vascuopathy extob, IVF filter Gastroenterology is consulted for evaluation of possible GI bleed. asked cardiology and vascular sx to eval pt sq heparin for DVT/PE PFX if no objections from GI TEDs SCDs also ordered f/u labs; d/w pt and staff; d/w PCP
[2017-07-24 08:35] LABS: BASOPHIL 1.3 % (0-2.0); EOSINOPHIL 2.4 % (0-4.5); MCHC 31.1 g/dl (32.0-36.0); MEAN CELL VOLUME 70.6 fl (80-96); MEAN PLT VOLUME 7.8 fl (7.5-11.1); NEUTROPHILS 70.4 % (42.8-82.8); PLATELET COUNT 427 K/MM3 (134-434); WHITE BLOOD COUNT 6.7 K/mm3 (4.0-10.0)
--- NOTE | 2017-07-24 08:56 | CON.CARD ---
Consult Consult Specialty:: cardio Referred by:: marie (for aguero) Reason for Consultation:: preop - History of Present Illness Chief Complaint: see below History of Present Illness: 81 year old female presented to the ED for a 5 day hx of nausea, dizziness, malaise, and loss of appetite. also having dry heaves without overt vomiting. eating only toast and other small, light foods. She saw her vascular doctor for claudication in her R leg on DOA, where they tania labs, found her H&H to be lower than normal, and told her to go to the hospital. Patient states that she stopped her iron pills after her colonoscopy in 2016. GI consulted--plan for inpt EGD 07/26 pt with very limited activity level of late due to legs. no cp or sob ever at current activity level. she also confirms that she has no h/o CAD/OR or PCIs. stress test done few years ago unremarkable (reliable historian). vascular surgeon told her she has bilateral "medium" narrowings in carotids--no intervention rec'd PMH: PAD--on cilostazol ? 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 (01/21)), Hiatal Hernia (with Carlos ulcer+), Peptic Ulcer Disease, Other (Previous hx of food impactions that had spontaneously resolved) ...: No - Past Surgical History Past Surgical History: Yes: Colonoscopy, Upper Endoscopy Additional Surgical History: IVC filter, SMA stent, L elbow surgery - Alcohol/Substance Use Hx Alcohol Use: No History of Substance Use: reports: None - Smoking History Smoking history: Former smoker Have you smoked in the past 12 months: No If you are a former smoker, when did you quit?: 1998 - Social History Usual Living Arrangement: Alone ADL: Independent 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 11/13/16 Family Disease History - Family Disease History Family Disease History: Heart Disease: Father (passed in his 50s), Other: Mother (Stroke), Brother (brain aneurysm) Review of Systems - Review of Systems Constitutional: reports: Loss of Appetite, Weakness. denies: Chills, Fever Eyes: denies: Eye Pain HENT: denies: Nasal Congestion Neck: denies: Stiffness Cardiovascular: denies: Palpitations Respiratory: denies: Orthopnea, PND Gastrointestinal: denies: Diarrhea, Rectal Bleeding Genitourinary: denies: Burning, Hematuria Musculoskeletal: denies: Muscle Pain Integumentary: denies: Rash Neurological: denies: Numbness, Seizure, Syncope Endocrine: denies: Excessive Sweating Hematology/Lymphatic: denies: Excessive Bleeding Vital Signs: Vital Signs Temperature 98.3 F 07/24/17 08:00 Pulse Rate 100 H 07/24/17 08:00 Respiratory Rate 18 07/24/17 08:00 Blood Pressure 119/73 07/24/17 08:00 O2 Sat by Pulse Oximetry (%) 97 07/23/17 21:00 Constitutional: Yes: Well Nourished, No Distress Eyes: No: Sclera Icterus HENT: No: Nasal Congestion Neck: No: Decreased ROM Respiratory: Yes: CTA Bilaterally. No: Accessory Muscle Use, Rales, Wheezes Gastrointestinal: Yes: Normal Bowel Sounds. No: Distention, Hepatomegaly, Palpable Mass, Tenderness Cardiovascular: Yes: Regular Rate and Rhythm JVD: No Carotid Bruit: Yes PMI: Non-Displaced Heart Sounds: Yes: S1, S2. No: Gallop Murmur: No: Systolic Murmur, Diastolic Murmur Musculoskeletal: Yes: Other (No kyphosis) Extremities: No: Cool, Cyanosis Edema: No Peripheral Pulses: 2+ Left Carotid, 2+ Right Carotid, 2+ Left Doralis Pedis, 2+ Right Dorsalis Pedis Integumentary: No: Jaundice Neurological: Yes: Alert, Oriented (x3) Psychiatric: No: Agitated - Other Data Labs, Other Data: CBC, BMP 07/24/17 07:55 INR, PTT INR 1.12 (0.82-1.09) 07/23/17 10:35 Laboratory Tests 07/23/17 07/23/17 07/24/17 10:35 10:35 07:55 WBC 6.7 Hgb 9.2 L D 9.1 L Plt Count 427 Sodium 137 Potassium 3.7 Carbon Dioxide 23 BUN 26 H D Creatinine 1.1 H D AST 25 D ALT 14 Creatine Kinase 63 Troponin I 0.02 Assessment/Plan CTA abd/pelvis: no flow in prox celiac artery or SMA, extensive athero plaque with prior SMA stent. patent CLYDE with suspected ostial stenosis. 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 mod to large hiatal hernia, bilat small nonob renal calculi ECG: NSR; LVH with assctd repol abn; borderline/mild prolonged QT; no path q's-- no signif change vs prior 11/24 anemia: -hgb reportedly down from baseline (9)--stable here -plan per GI--for EGD 07/26 anorexia, mesenteric arterial insufficiency, ? intestinal angina: -prior SMA stent, sees outpt vascular -defer to vascular surgeon re: ? stent occluded with no flow on CTA, consider doppler evaluation PAD with claudication: -on cilostazol as outpt -can continue if hgb remains normal, but low threshold to stop it if any bleeding suspected (iron studies pending, no melena hx) asymptomatic carotid dz: -chronic, monitored by vascular surgeon as outpt -as disc'd below preop CV eval: -Revised CV Risk Index = 0 -reduced functional status -for low risk procedure (EGD) -no s/sx of active CAD or CHF disease -cleared to proceed with EGD at low-intermediate risk of periop CV complications -given loud L carotid bruit in pt with known diffuse vascular occlusive dz, rec carotid dopplers preop--if severe stenosis, then sedation approach by anesthesia should focus on agents least likely to cause signif vasodilation and systemic BP drops
[2017-07-24 09:06] LABS: ALBUMIN 3.4 g/dl (3.4-5.0); ALK PHOS 62 U/L (45-117); ANION GAP 13 (8-16); BILIRUBIN,TOTAL 0.5 mg/dL (0.2-1.0); C-REACTIVE PROTEIN 1.1 MG/DL (0.00-0.3); CALCIUM 9.2 mg/dL (8.5-10.1); CO2 23 mmol/L (21-32); CREATININE 0.9 mg/dL (0.55-1.02); GLUCOSE,RANDOM 73 mg/dL (74-106); LDH 137 U/L (84-246); SGOT/AST 20 U/L (15-37); SGPT/ALT 13 U/L (12-78); TOT PROT 7.2 g/dl (6.4-8.2)
[2017-07-24] MEDS ORDERED: PT OWN MED DRAWER 7, Y5N ONE (09:54)
[2017-07-24] MEDS ORDERED: PANTOPRAZOLE 40 MG TABLET (FP) PO SCH (10:00)
[2017-07-24] MEDS: CILOSTAZOL 100 MG TABLET PO SCH ×2 (10:29→22:27)
[2017-07-24] MEDS: PANTOPRAZOLE SODIUM 40 MG in SODIUM CHLORIDE 100 ML IVPB SCH ×2 (11:05→22:26)
[2017-07-24] MEDS ORDERED: ONDANSETRON 4 MG/2 ML VIAL IVPB PRN (16:50)
[2017-07-24] MEDS: HEPARIN NA (PORCINE) 5,000 UNITS/ML 1ML VIAL SQ SCH ×2 (22:26→22:30)
[2017-07-24] MEDS: ATORVASTATIN CA 10 MG TABLET (FP) PO SCH (22:26)
[2017-07-25 08:50] LABS: BASOPHIL 1.1 % (0-2.0); EOSINOPHIL 1.7 % (0-4.5); MEAN CELL VOLUME 70.8 fl (80-96); MEAN PLT VOLUME 8.1 fl (7.5-11.1); NEUTROPHILS 66.5 % (42.8-82.8); PLATELET COUNT 438 K/MM3 (134-434); RDW 19.8 % (11.6-15.6); WHITE BLOOD COUNT 7.2 K/mm3 (4.0-10.0)
[2017-07-25 09:14] LABS: ALBUMIN 3.2 g/dl (3.4-5.0); ANION GAP 8 (8-16); BILIRUBIN,TOTAL 0.4 mg/dL (0.2-1.0); CALCIUM 8.2 mg/dL (8.5-10.1); CO2 24 mmol/L (21-32); CREATININE 0.9 mg/dL (0.55-1.02); GLUCOSE,RANDOM 97 mg/dL (74-106); LDH 138 U/L (84-246); SGOT/AST 18 U/L (15-37); SGPT/ALT 12 U/L (12-78); TOT PROT 7.2 g/dl (6.4-8.2)
[2017-07-25 09:15] LABS: ALK PHOS 64 U/L (45-117); FERRITIN 7.126 ng/ml (6.9-282.5)
[2017-07-25 10:07] LABS: HAPTOGLOBIN 151 mg/dL (34-200); SERUM IRON 19 ug/dL (27-139); TOTAL IRON BINDING CAPACITY 357 ug/dL (250-450); UIBC 338 ug/dL (118-369)
[2017-07-25] MEDS ORDERED: PT OWN MED DRAWER 7, Y5N ONE (10:15)
[2017-07-25] MEDS: HEPARIN NA (PORCINE) 5,000 UNITS/ML 1ML VIAL SQ SCH ×2 (10:26→21:10)
[2017-07-25] MEDS: PANTOPRAZOLE SODIUM 40 MG in SODIUM CHLORIDE 100 ML IVPB SCH ×2 (10:27→21:25)
[2017-07-25] MEDS: CILOSTAZOL 100 MG TABLET PO SCH ×2 (10:28→21:25)
--- NOTE | 2017-07-25 12:03 | CONSULT ---
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 (01/21)), Hiatal Hernia (with Carlos ulcer+), Peptic Ulcer Disease, Other (Previous hx of food impactions that had spontaneously resolved) ...: No - Past Surgical History Past Surgical History: Yes: Colonoscopy, Upper Endoscopy Additional Surgical History: IVC filter, SMA stent, L elbow surgery - Alcohol/Substance Use Hx Alcohol Use: No History of Substance Use: reports: None - Smoking History Smoking history: Former smoker Have you smoked in the past 12 months: No If you are a former smoker, when did you quit?: 1998 - Social History Usual Living Arrangement: Alone ADL: Independent 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 11/13/16 Family Disease History - Family Disease History Family Disease History: Heart Disease: Father (passed in his 50s), Other: Mother (Stroke), Brother (brain aneurysm) Physical Exam Vital Signs: Vital Signs Temperature 98.3 F 07/25/17 08:00 Pulse Rate 100 H 07/25/17 08:00 Respiratory Rate 18 07/25/17 08:00 Blood Pressure 123/64 07/25/17 08:00 O2 Sat by Pulse Oximetry (%) 97 07/24/17 21:00 Labs: CBC, BMP 07/25/17 07:30 07/25/17 07:30 Assessment/Plan Vascular Surgery 81-year-old female presents to the ED for evaluation of drop in hematocrit associated with dizziness and nausea for the past few days. Patient states has history of PUD that required a cecal stent placed 2 years ago and has been under the care of Dr. Blackmon. Patient also states history of CAD and anemia. Patient denies bloody stool, dark colored stool, abdominal distention, vomiting up blood, or palpitations. Patient denies recent change in medications and was told by her PCP after receiving blood work that was drawn yesterday that her hemoglobin and hematocrit dropped approximately 3-4 points. Timing/Duration: getting worse Severity: moderate Associated Symptoms: reports: loss of appetite, nausea/vomiting, weakness. denies: shortness of breath Past History - Past Medical History Allergies/Adverse Reactions: Allergies Allergy/AdvReac Type Severity Reaction Status Date / Time aspirin Allergy Mild Hives Verified 07/23/17 10:06 Penicillins Allergy Verified 07/23/17 10:06 Home Medications: Ambulatory Orders Atorvastatin Ca [Lipitor] 10 mg PO HS 11/26/14 Ascorbate Calcium [Vitamin C] 500 mg PO DAILY 01/06/16 Cilostazol 100 mg PO BID 01/06/16 Ferrous Gluconate [Iron] 256 mg PO DAILY 01/06/16 Pantoprazole Sodium [Protonix] 40 mg PO DAILY #30 tablet. 11/13/16 PE Head - NC/at Lung - CTA Heart - RRR abd - soft,nt,nd ext - right foot calf pain on ambulation Going on for 2 years. No palpable pulses. Erythema of 2nd toe. A/P Right leg claudication History of 50 years of smoking , one pack a day. Pt for EGD in am After pt is cleared from GI standpoint , can work up pt. Pt will probably need a CTA an then angiogram. Will follow Louie Raza DO
--- NOTE | 2017-07-25 12:09 | PN ---
Progress Note, Physician Chief Complaint: events noted; carotid US c/w severe L ICA stenosis; CTA done results pending neuro asymptomatic no new c/o; pt in bed axox3 NAD no CP/SOB, no bleed or pain - Current Medication List Current Medications: Active Medications Atorvastatin Calcium (Lipitor -) 10 mg PO HS [facility] Last Admin: 07/24/17 22:26 Dose: 10 mg Cilostazol (Pletal -) 100 mg PO BID [facility] Last Admin: 07/25/17 10:28 Dose: 100 mg Heparin Sodium (Porcine) (Heparin -) 5,000 unit SQ BID [facility] Last Admin: 07/25/17 10:26 Dose: Not Given Pantoprazole Sodium 40 mg/ (Sodium Chloride) 100 mls @ 200 mls/hr IVPB BID [facility] Last Admin: 07/25/17 10:27 Dose: 200 mls/hr Ondansetron HCl (Zofran Injection) 8 mg IVPB Q6H PRN PRN Reason: NAUSEA AND/OR VOMITING Last Admin: 07/24/17 16:59 Dose: 8 mg - Objective Vital Signs: Vital Signs Temperature 98.3 F 07/25/17 08:00 Pulse Rate 100 H 07/25/17 08:00 Respiratory Rate 18 07/25/17 08:00 Blood Pressure 123/64 07/25/17 08:00 O2 Sat by Pulse Oximetry (%) 97 07/24/17 21:00 Constitutional: Yes: No Distress, Calm Eyes: Yes: Conjunctiva Clear HENT: Yes: Atraumatic Neck: Yes: Supple Cardiovascular: Yes: Regular Rate and Rhythm Respiratory: Yes: CTA Bilaterally Gastrointestinal: Yes: Soft. No: Distention, Tenderness Genitourinary: No: CVA Tenderness - Left, CVA Tenderness - Right, Hematuria Musculoskeletal: No: Joint Stiffness, Joint Swelling Extremities: No: Cold, Cool, Cyanosis Edema: No Peripheral Pulses WNL: Yes Integumentary: No: Rash, Venous Stasis Changes Neurological: Yes: WNL, Alert, Oriented ...Motor Strength: WNL Psychiatric: Yes: WNL, Alert, Oriented. No: Agitated, Suicidal Ideation Labs: CBC, BMP 07/25/17 07:30 07/25/17 07:30 INR, PTT INR 1.12 (0.82-1.09) 07/23/17 10:35 Fibrinogen 455.0 mg/dL (238-498) 07/25/17 07:30 - ....Imaging Other: Report Reviewed Assessment/Plan 81 year old female presented to the ED for a 5 day hx of nausea, dizziness, malaise, and loss of appetite. Found to be anemic; h/o PUD but guaiac negative in ER, extob, IVF filter h/o vascuopathy PVD, SMA stenosis, L ICA sever stenosis; low K - replete K, check BMP and MG in am; d/w GI will need EGD for further w/u. d/w cardiology dr Chester and vascular sx dr Raza: low to intermediate CV risk; carotid stenosis w/u can be done after EGD no absolute contraindications to the proposed procedure EGD if lytes WNL in am; avoid hypoTA and cerebral hypoperfusion; d/w pt all the above, indications, alternatives, possible risks of the EGD and complications; she agreed with procedure. TEDs SCDs also ordered d/w pt and staff; d/w PCP
[2017-07-25 12:13] LABS: ERYTHROCYTE SEDIMENTATION RATE 44 mm/hr (0-30)
--- NOTE | 2017-07-25 12:20 | PN ---
Progress Note (short form) - Note Progress Note: VAscular Surgery Carotid US images reviewed. Left ICA with severe stenosis at bulb. However prox ICA is open Right side has no disease. Pt will need CTA of carotids for gold standard test. Can work up pt after EGD. Louie Raza DO
[2017-07-25] MEDS: POTASSIUM CHLORIDE TABS 20 MEQ TABLET.ER (FP) PO ONE ×2 (12:29→12:35)
[2017-07-25] MEDS: ATORVASTATIN CA 10 MG TABLET (FP) PO SCH (21:25)
[2017-07-25] MEDS ORDERED: POTASSIUM CHLORIDE ORAL LIQUID 20 MEQ/15 ML PO ONE (21:30)
[2017-07-26 06:07] LABS: SERUM IRON 17 ug/dL (27-139)
[2017-07-26 08:48] LABS: BASOPHIL 1.4 % (0-2.0); EOSINOPHIL 4.8 % (0-4.5); MCH 21.7 pg (25.7-33.7); MCHC 30.4 g/dl (32.0-36.0); MEAN CELL VOLUME 71.3 fl (80-96); MEAN PLT VOLUME 8.2 fl (7.5-11.1); PLATELET COUNT 465 K/MM3 (134-434); RDW 19.7 % (11.6-15.6); WHITE BLOOD COUNT 8.3 K/mm3 (4.0-10.0)
--- NOTE | 2017-07-26 08:51 | PN ---
Progress Note, Physician Chief Complaint: in bed nad no new c/o - Current Medication List Current Medications: Active Medications Atorvastatin Calcium (Lipitor -) 10 mg PO HS [facility] Last Admin: 07/25/17 21:25 Dose: 10 mg Cilostazol (Pletal -) 100 mg PO BID [facility] Last Admin: 07/25/17 21:25 Dose: 100 mg Pantoprazole Sodium 40 mg/ (Sodium Chloride) 100 mls @ 200 mls/hr IVPB BID [facility] Last Admin: 07/25/17 21:25 Dose: 200 mls/hr Ondansetron HCl (Zofran Injection) 8 mg IVPB Q6H PRN PRN Reason: NAUSEA AND/OR VOMITING Last Admin: 07/24/17 16:59 Dose: 8 mg - Objective Vital Signs: Vital Signs Temperature 98.4 F 07/26/17 06:00 Pulse Rate 90 07/26/17 06:00 Respiratory Rate 18 07/26/17 06:00 Blood Pressure 102/56 07/26/17 06:00 O2 Sat by Pulse Oximetry (%) 93 L 07/25/17 20:20 Constitutional: Yes: No Distress, Calm Eyes: Yes: Conjunctiva Clear HENT: Yes: Atraumatic Neck: Yes: Supple Cardiovascular: Yes: Regular Rate and Rhythm Respiratory: Yes: CTA Bilaterally Gastrointestinal: Yes: Soft. No: Distention, Tenderness Musculoskeletal: No: Joint Stiffness, Joint Swelling Extremities: No: Cold, Cool, Cyanosis Edema: No Integumentary: No: Rash, Venous Stasis Changes Neurological: Yes: WNL, Alert, Oriented ...Motor Strength: WNL Psychiatric: Yes: WNL, Alert, Oriented. No: Agitated, Suicidal Ideation Labs: INR, PTT INR 1.12 (0.82-1.09) 07/23/17 10:35 Fibrinogen 455.0 mg/dL (238-498) 07/25/17 07:30 - ....Imaging Other: Report Reviewed Assessment/Plan 81 year old female presented to the ED for a 5 day hx of nausea, dizziness, malaise, and loss of appetite. Found to be anemic; h/o PUD but guaiac negative in ER, extob, IVF filter h/o vascuopathy PVD, SMA stenosis, L ICA severe stenosis; GI for EGD for further w/u. f/u labs Teds, Scds to legs d/w pt and staff; d/w PCP
[2017-07-26 09:06] LABS: ALBUMIN 3.3 g/dl (3.4-5.0); ALK PHOS 62 U/L (45-117); ANION GAP 8 (8-16); BILIRUBIN,DIRECT 0.1 mg/dL (0.0-0.2); BILIRUBIN,TOTAL 0.3 mg/dL (0.2-1.0); CALCIUM 8.6 mg/dL (8.5-10.1); CO2 27 mmol/L (21-32); CREATININE 0.9 mg/dL (0.55-1.02); GLUCOSE,RANDOM 93 mg/dL (74-106); MAGNESIUM 1.5 mg/dL (1.8-2.4); SGOT/AST 19 U/L (15-37); SGPT/ALT 13 U/L (12-78); TOT PROT 7.4 g/dl (6.4-8.2)
[2017-07-26] MEDS ORDERED: PT OWN MED DRAWER 7, Y5N ONE (10:04)
[2017-07-26 10:10] LABS: HYPOCHROMIA 1+
[2017-07-26] MEDS: PANTOPRAZOLE SODIUM 40 MG in SODIUM CHLORIDE 100 ML IVPB SCH (10:10)
[2017-07-26 10:11] LABS: ANISOCYTOSIS 1+; OVALOCYTE 1+
[2017-07-26] MEDS: CILOSTAZOL 100 MG TABLET PO SCH ×2 (10:19→21:04)
--- NOTE | 2017-07-26 10:38 | PN ---
Progress Note, Physician Chief Complaint: preop History of Present Illness: no cp, sob, palpitations, new neuro deficits - Current Medication List Current Medications: Active Medications Atorvastatin Calcium (Lipitor -) 10 mg PO HS [facility] Last Admin: 07/25/17 21:25 Dose: 10 mg Cilostazol (Pletal -) 100 mg PO BID [facility] Last Admin: 07/26/17 10:19 Dose: Not Given Pantoprazole Sodium 40 mg/ (Sodium Chloride) 100 mls @ 200 mls/hr IVPB BID [facility] Last Admin: 07/26/17 10:10 Dose: 200 mls/hr Ondansetron HCl (Zofran Injection) 8 mg IVPB Q6H PRN PRN Reason: NAUSEA AND/OR VOMITING Last Admin: 07/24/17 16:59 Dose: 8 mg - Objective Vital Signs: Vital Signs Temperature 98.4 F 07/26/17 06:00 Pulse Rate 90 07/26/17 06:00 Respiratory Rate 18 07/26/17 06:00 Blood Pressure 102/56 07/26/17 06:00 O2 Sat by Pulse Oximetry (%) 93 L 07/25/17 20:20 Constitutional: Yes: Well Nourished, No Distress, Calm Cardiovascular: Yes: Regular Rate and Rhythm, S1, S2. No: Gallop, Murmur Respiratory: Yes: Regular, CTA Bilaterally. No: Accessory Muscle Use, Rales, Wheezes Extremities: No: Cold Edema: No Neurological: Yes: Alert, Oriented Psychiatric: No: Agitated Labs: CBC, BMP 07/26/17 08:00 07/26/17 08:00 INR, PTT INR 1.12 (0.82-1.09) 07/23/17 10:35 Fibrinogen 455.0 mg/dL (238-498) 07/25/17 07:30 Assessment/Plan CTA abd/pelvis: no flow in prox celiac artery or SMA, extensive athero plaque with prior SMA stent. patent CLYDE with suspected ostial stenosis. 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 mod to large hiatal hernia, bilat small nonob renal calculi ECG: NSR; LVH with assctd repol abn; borderline/mild prolonged QT; no path q's-- no signif change vs prior 11/24 anemia: -hgb reportedly down from baseline (9)--stable here -plan per GI--for EGD 07/26 anorexia, mesenteric arterial insufficiency, ? intestinal angina: -prior SMA stent, sees outpt vascular -defer to vascular surgeon re: ? stent occluded with no flow on CTA, consider doppler evaluation PAD with claudication: -on cilostazol as outpt -can continue if hgb remains normal, but low threshold to stop it if any bleeding suspected (iron studies pending, no melena hx) asymptomatic carotid dz: -severe stenosis L carotid bulb -asymptomatic -seen by vascular surgery--plan for CTA and decisions re: CEA to follow -reported ASA allergy. -would start plavix once cleared by GI as no high risk bleeding lesions on scope -would prefer moderate to high intensity statin (atorva 40-80). cont 10mg for now, will d/w dr aguero (pmd) whether prior intolerances or if total chol/LDL run low at baseline preop CV eval: -Revised CV Risk Index = 0 -reduced functional status -for low risk procedure (EGD) -no s/sx of active CAD or CHF disease -cleared to proceed with EGD at low-intermediate risk of periop CV complications -given severe L ICA stenosis, rec sedation choice by anesthesia should focus on agents least likely to cause signif vasodilation and systemic BP drops (disc'd this rec with dr puri who is aware)
[2017-07-26] MEDS ORDERED: PROPOFOL 20 ML ONE (11:24)
[2017-07-26] MEDS ORDERED: ETOMIDATE 20 MG/10 ML AMPUL IVPUSH ONE (11:24)
[2017-07-26] MEDS ORDERED: ATORVASTATIN CA 40 MG TABLET (FP) PO SCH (11:25)
--- NOTE | 2017-07-26 12:12 | PN ---
Progress Note (short form) - Note Progress Note: GI Procedure NOte: Please see EGD report. Multiple gastric body and antral ulcers were found which likely account for the Hb drop. The patient should be maintained on a PPI given h/o recurring ulcers. I have no objections to discharge.
--- NOTE | 2017-07-26 12:49 | PN ---
Progress Note (short form) - Note Progress Note: Vascular Surgery CTA reviewed - 90% stenosis of left ICA. Will speak to medical and cardiology team about plan. Pt came in for right leg pain, where she was told at [facility] that she needs a angiogram. GI note appreciated. Louie Raza DO
--- NOTE | 2017-07-26 16:42 | EKG ---
Test Reason : Blood Pressure : / mmHG Vent. Rate : 094 BPM Atrial Rate : 094 BPM P-R Int : 196 ms QRS Dur : 088 ms QT Int : 400 ms P-R-T Axes : 053 -07 107 degrees QTc Int : 500 ms NORMAL SINUS RHYTHM LEFT VENTRICULAR HYPERTROPHY WITH REPOLARIZATION ABNORMALITY CANNOT RULE OUT SEPTAL INFARCT (CITED ON OR BEFORE 23-JUL-2017) ABNORMAL ECG WHEN COMPARED WITH ECG OF 23-JUL-2017 10:24, NO SIGNIFICANT CHANGE WAS FOUND Confirmed by MARBELLA CUBA MD ([id number]) on 07/26/2017 4:42:05 PM Referred By: TRUONG MYLES Confirmed By:MARBELLA CUBA MD
--- NOTE | 2017-07-26 16:59 | EKG ---
Test Reason : Blood Pressure : / mmHG Vent. Rate : 101 BPM Atrial Rate : 101 BPM P-R Int : 160 ms QRS Dur : 086 ms QT Int : 380 ms P-R-T Axes : 035 -17 103 degrees QTc Int : 492 ms SINUS TACHYCARDIA LEFT VENTRICULAR HYPERTROPHY WITH REPOLARIZATION ABNORMALITY CANNOT RULE OUT SEPTAL INFARCT , AGE UNDETERMINED ABNORMAL ECG WHEN COMPARED WITH ECG OF 12-NOV-2016 15:16, NO SIGNIFICANT CHANGE WAS FOUND Confirmed by MARBELLA CUBA MD ([id number]) on 07/26/2017 4:59:09 PM Referred By: Confirmed By:MARBELLA CUBA MD
[2017-07-26] MEDS: PANTOPRAZOLE 40 MG TABLET (FP) PO SCH (21:04)
[2017-07-27 00:09] LABS: A/G RATIO 0.8 (0.7-1.7); ALBUMIN 3.1 g/dL (2.9-4.4); GLOBULIN, TOTAL 3.7 g/dL (2.2-3.9); M-SPIKE Not Observed g/dL (Not Observed); TOTAL PROTEIN 6.8 g/dL (6.0-8.5)
[2017-07-27 06:11] LABS: PROTEIN C ACTIVITY 133 % (73-180); PROTEIN S ACTIVITY 88 % (63-140)
--- NOTE | 2017-07-27 09:48 | PN ---
Progress Note, Physician History of Present Illness: Patient seen and examined at bedside. Patient underwent EGD yesterday, which revealed a schatzki ring at the GE junction (biopsy performed), large hiatal hernia, sessile polyp in gastric fundus (polypectomy performed), multiple small , non-bleeding ulcers in gastric body and antrum. Currently patient denies nausea, vomiting, fever, chills, chest pain, shortness of breath, abdominal pain , hematochezia. She had one normal bowel movement this morning. - Current Medication List Current Medications: Active Medications Atorvastatin Calcium (Lipitor -) 40 mg PO HS [facility] Last Admin: 07/26/17 21:04 Dose: 40 mg Cilostazol (Pletal -) 100 mg PO BID [facility] Last Admin: 07/26/17 21:04 Dose: 100 mg Ondansetron HCl (Zofran Injection) 8 mg IVPB Q6H PRN PRN Reason: NAUSEA AND/OR VOMITING Last Admin: 07/24/17 16:59 Dose: 8 mg Pantoprazole Sodium (Protonix -) 40 mg PO BID [facility] Last Admin: 07/26/17 21:04 Dose: 40 mg - Objective Vital Signs: Vital Signs Temperature 98.7 F 07/27/17 06:00 Pulse Rate 92 H 07/27/17 06:00 Respiratory Rate 20 07/27/17 06:00 Blood Pressure 110/56 07/27/17 06:00 O2 Sat by Pulse Oximetry (%) 95 07/26/17 20:37 Constitutional: Yes: No Distress, Calm Eyes: Yes: Conjunctiva Clear, EOM Intact HENT: Yes: Atraumatic, Normocephalic Neck: Yes: Supple, Trachea Midline Cardiovascular: Yes: Regular Rate and Rhythm, S1, S2, Other (Bruit noted in L carotid and R femoral arteries) Respiratory: Yes: Regular, CTA Bilaterally Gastrointestinal: Yes: Normal Bowel Sounds, Soft Musculoskeletal: Yes: WNL Extremities: Yes: WNL Edema: No Peripheral Pulses WNL: Yes Integumentary: Yes: WNL Neurological: Yes: Alert, Oriented ...Motor Strength: WNL Psychiatric: Yes: Alert, Oriented Labs: CBC, BMP 07/26/17 08:00 07/26/17 08:00 INR, PTT INR 1.12 (0.82-1.09) 07/23/17 10:35 Fibrinogen 455.0 mg/dL (238-498) 07/25/17 07:30 Problem List - Problems (1) Symptomatic anemia Code(s): D64.9 - ANEMIA, UNSPECIFIED (2) Poor appetite Code(s): R63.0 - ANOREXIA (3) Nausea Code(s): R11.0 - NAUSEA (4) Angiodysplasia of colon Code(s): K55.20 - ANGIODYSPLASIA OF COLON WITHOUT HEMORRHAGE (5) Peptic ulcer within a sliding hiatal hernia Code(s): K27.9 - PEPTIC ULC, SITE UNSP, UNSP AC OR CHR, W/O HEMOR OR PERF K44.9 - DIAPHRAGMATIC HERNIA WITHOUT OBSTRUCTION OR GANGRENE (6) Diverticulosis Code(s): K57.90 - DVRTCLOS OF INTEST, PART UNSP, W/O PERF OR ABSCESS W/O BLEED Assessment/Plan See HPI for EGD summary, and see EGD summary in patient's chart for the full report. -could have had her hgb drop from the ulcers in her stomach -Patient is currently not bleeding and stable from GI perspective -avoid NSAIDs -f/u pathology report on biopsies taken during EGD -protonix 40mg BID -f/u with Dr. Raza about left internal carotid artery stenosis
[2017-07-27] MEDS ORDERED: PT OWN MED DRAWER 7, Y5N ONE (09:51)
[2017-07-27] MEDS: CILOSTAZOL 100 MG TABLET PO SCH (10:16)
[2017-07-27] MEDS: PANTOPRAZOLE 40 MG TABLET (FP) PO SCH (10:16)
--- NOTE | 2017-07-27 10:26 | DS ---
Physical Examination Vital Signs: Vital Signs Temperature 98.7 F 07/27/17 06:00 Pulse Rate 92 H 07/27/17 06:00 Respiratory Rate 20 07/27/17 06:00 Blood Pressure 110/56 07/27/17 06:00 O2 Sat by Pulse Oximetry (%) 95 07/26/17 20:37 Findings/Remarks: s/p EGD results noted and d/w pt and PCP; d/w GI continue PPI at least 2 weeks before any vascular procedure done; then stay on PPI as long as possible; d/w vascular sx dr Raza: DC pt home and f/u with vascular sx outpt in 2-3 weeks ; if angioplasty or stent will be placed, she will need plavix which can not be used at this point b/o PUD - d/w pt and PCP dr Davalos Constitutional: Yes: No Distress, Calm Eyes: Yes: Conjunctiva Clear HENT: Yes: Atraumatic Neck: Yes: Supple Cardiovascular: Yes: Regular Rate and Rhythm Respiratory: Yes: CTA Bilaterally Gastrointestinal: Yes: Soft. No: Distention, Tenderness Renal/: No: CVA Tenderness - Left, CVA Tenderness - Right, Hematuria Musculoskeletal: No: Joint Stiffness, Joint Swelling Extremities: No: Cold, Cool, Cyanosis, Erythema Edema: No Integumentary: No: Rash, Venous Stasis Changes Neurological: Yes: WNL, Alert, Oriented ...Motor Strength: WNL Psychiatric: Yes: WNL, Alert, Oriented. No: Agitated, Suicidal Ideation Labs: CBC, BMP 07/26/17 08:00 07/26/17 08:00 Discharge Summary Reason For Visit: WEAKNESS Current Active Problems Anemia (Acute) Angiodysplasia (Acute) Angiodysplasia of colon (Acute) Diverticulosis (Acute) Nausea (Acute) Peptic ulcer within a sliding hiatal hernia (Acute) Poor appetite (Acute) Symptomatic anemia (Acute) Weakness (Acute) Procedures: Principal: admitted with anemia; GI EGD c/w PUD Other Procedures: started on PPI;. also has L ICA stenosis, SMA and iliac/ femoral artery stenosis; will need vacsular w/u and treatment Hospital Course: EGD c/w PUD; needs PPI and GI f/u per dr Knight; vascular sx f/u after DC home; meds as ordered Condition: Stable - Instructions Diet, Activity, Other Instructions: f/u PCP and labs CBC CMP in 1-2 weeks GI f/u in 2-4 weeks vascular surgery and cardiology in 2-3 weeks RTER if worse or recurrent DO NOT STOP PPI Referrals: Juan Alberto Knight MD [Staff Physician] - Caren Davalos MD [Primary Care Provider] - Disposition: HOME - Home Medications Comprehensive Discharge Medication List: Ambulatory Orders Atorvastatin Ca [Lipitor] 10 mg PO HS 11/26/14 Ascorbate Calcium [Vitamin C] 500 mg PO DAILY 01/06/16 Cilostazol 100 mg PO BID 01/06/16 Ferrous Gluconate [Iron] 256 mg PO DAILY 01/06/16 Pantoprazole Sodium [Protonix] 40 mg PO DAILY #30 tablet. 11/13/16
[2017-07-27 10:51] VITALS: BP 126/69; PULSE 98; TEMP 98
--- NOTE | 2017-07-27 13:27 | PATH ---
Surgical Pathology Report Patient Name: RENNY ALMANZA [facility]. Rec. #: [id number] /Age/Gender: 1935 (Age: 81) / F Account: [id number] Location: [address] [place] [address]/[facility] Taken: 07/26/2017 Received: 07/26/2017 Reported: 07/27/2017 Physicians: Juan Alberto Knight M.D. Specimen(s) Received A: BX ANTRUM B: FUNDIC POLYP C: BX SCHATZKI'S RING Clinical History Anemia Multiple gastric ulcers, fundic polyp, Schatzki's ring, hiatal hernia Final Diagnosis A. STOMACH, ANTRUM, BIOPSY: GASTRIC ANTRAL MUCOSA WITH MODERATE CHRONIC GASTRITIS. IMMUNOSTAIN FOR H. PYLORI IS NEGATIVE FOR ORGANISMS. B. STOMACH, FUNDIC POLYP, BIOPSY: POLYPOID FRAGMENT OF GASTRIC OXYNTIC MUCOSA WITH MODERATE CHRONIC GASTRITIS AND FOCAL SURFACE HYPERPLASTIC CHANGE. NEGATIVE FOR DYSPLASIA. IMMUNOSTAIN FOR H. PYLORI IS NEGATIVE FOR ORGANISMS. C. SCHATZKI'S RING, BIOPSY: SQUAMOUS AND COLUMNAR GASTRIC-TYPE MUCOSA WITH ACTIVE AND CHRONIC INFLAMMATION AND REFLUX TYPE CHANGES. NO INTESTINAL METAPLASIA (LEMUS'S ESOPHAGUS) IDENTIFIED. Electronically Signed Armand Pinto M.D. Gross Description A. Received in formalin, labeled "biopsy antrum" is a urena, irregular portion of soft tissue measuring 0.4 cm in greatest dimension. The specimen is submitted in toto in one cassette. B. Received in formalin, labeled "biopsy fundic polyp" is a urena, irregular portion of soft tissue measuring 0.3 cm in greatest dimension. The specimen is submitted in toto in one cassette. C. Received in formalin, labeled "biopsy Schatzki's ring" are 4 urena, irregular portions of soft tissue ranging from 0.1-0.4 cm in greatest dimension. The specimens are submitted in toto in one cassette. 07/26/2017 saudi07/26/2017
[2017-07-30 00:06] LABS: ALBUMIN FOR UPE 60.8 % (.); GAMMA GLOBULIN % 14.5 % (.); M-SPIKE, % Not Observed % (Not Observed)
== END 2017-07-27 11:45 | disposition home or self-care (01) | DRG 384 ==
LOC: JER 10:02 → JERBED 12:57 → J6S 15:28
PROVIDERS: ADMIT Internal Medicine; ATTEND Internal Medicine
PROC: 0DBE8ZX Excision of Large Intestine, Via Natural or Artificial Opening Endoscopic, Diagnostic (ICD-10-PCS; 2017-07-26)
PROC: 0DB58ZX Excision of Esophagus, Via Natural or Artificial Opening Endoscopic, Diagnostic (ICD-10-PCS; principal; 2017-07-26 11:00)
DX: K25.9 Gastric ulcer, unspecified as acute or chronic, without hemorrhage or perforation (principal); D64.9 Anemia, unspecified; E78.5 Hyperlipidemia, unspecified; K57.90 Diverticulosis of intestine, part unspecified, without perforation or abscess without bleeding; K55.20 Angiodysplasia of colon without hemorrhage; K46.9 Unspecified abdominal hernia without obstruction or gangrene; K27.9 Peptic ulcer, site unspecified, unspecified as acute or chronic, without hemorrhage or perforation; I73.89 Other specified peripheral vascular diseases; R11.0 Nausea; R63.0 Anorexia; Z68.22 Body mass index [BMI] 22.0-22.9, adult; I65.22 Occlusion and stenosis of left carotid artery; K22.2 Esophageal obstruction; I70.209 Unspecified atherosclerosis of native arteries of extremities, unspecified extremity; K31.7 Polyp of stomach and duodenum; Z88.0 Allergy status to penicillin; Z87.891 Personal history of nicotine dependence; Z86.711 Personal history of pulmonary embolism
CPT/HCPCS: 36415; 70498-TC; 71010-TC; 74174-TC; 80048; 80053; 80076; 81003; 81015; 82272; 82607; 82728; 83010; 83540; 83550; 83615; 83735; 84155; 84156; 84157; 84165; 84484; 85025; 85044; 85303; 85306; 85384; 85610; 85651; 86038; 86140; 86850; 86900; 86901; 88305-TC; 90688; 93005; 93010; 93880-TC; 99284-25; G0008; J1644